=== PATIENT | male | born 1955 | race Caucasian/White ===

== ENCOUNTER → 2016-11-04 | Outpatient (CLI) | payer OTHER ==
[~2016-11-04] MED LIST: GLUCOPHAGE500 MG PO; HYDROCHLOROTHIA25 MG; LEVEMIR100 UNITS/ SUBQ; LIPITOR20 MG PO; NORVASC PO; NOVOLOG100 UNITS/ SUBQ; PRINIVIL20 M1 PO; PROTONIX PO; ST JOSEPH ASPIR81 MG PO
--- NOTE | ~2016-11-04 | MR103 ---
[facility] A Service of [facility] RADIOLOGY TEXT RESULTS PATIENT: THERON FLORES LOCATION: [facility] : 54 UNIT #: [id number] AGE: [address]: Renato Bynum IV, MD SEX: M ORDER DR: [id number] [facility] [address] [place], [place] [address] [id number] O MR#: [id number] Acc #: [id number] NAME: THERON FLORES : 1955 SEX: M STUDY DATE/TIME: 11/04/2016 12:45 UNIT: [facility] ROOM: STUDY DESCRIPTION: MR Knee Wo Contrast Lt Attending Physician: Renato Bynum M.D. Referring Physician: Renato Bynum M.D. Ordering Physician: Renato Bynum M.D. Primary Care Physician: No Primary Care Physician MRI CENTER REPORT This report is preliminary unless electronic signature is present. EXAM MRI left knee without contrast HISTORY A 61-year-old male twisted knee during summer 2015. Complains of anterior medial knee pain getting worse surgery on left knee June 2016, patient underwent partial medial and lateral meniscectomy, and extensive chondroplasty of the patellofemoral joint. FINDINGS Multiplanar multiecho imaging of the left knee utilizing a high field magnet and dedicated protocol. Examination demonstrates diffuse cartilage thinning along the weightbearing aspect medial femoral condyle with areas of moderate to suspected high-grade chondromalacia particularly along the weightbearing aspect of the medial femoral condyle. No subchondral edema identified. There is a dhrc-qs-eqepmybs grade chondromalacia within the medial tibial plateau. The medial meniscus demonstrates significant loss of meniscal volume within the midbody segment and posterior horn medial meniscus compatible with a partial meniscectomy. Degeneration noted within the posterior horn meniscal remnant possibly representing a horizontal cleavage tear within the root remnant but no sizeable tear displaced meniscal fragment. In the lateral compartment, a focal area of chondromalacia is seen in the posterior weightbearing aspect f the lateral femoral condyle measuring up to 7 mm with a focal subarticular osteophyte. Myxoid degeneration noted within the lateral meniscus with truncation of the posterior body segment suggesting a small inner margin tear or sequela of partial meniscectomy. No sizeable tear displaced meniscal fragment. Mild chondromalacia along the median ridge patella with a trace amount of subchondral edema. Trochlear cartilage also demonstrates mild chondromalacia deep trochlear groove. Anterior-posterior cruciate ligaments appear intact. The collateral ligaments and extensor mechanism unremarkable. Moderate knee effusion. Fluid distends the G S bursa with STS. [facility] [facility] A Service of [facility] RADIOLOGY TEXT RESULTS PATIENT: THERON FLORES LOCATION: [facility] : 54 UNIT #: [id number] AGE: [address]: Renato Bynum IV, MD SEX: M ORDER DR: a sizeable popliteal cyst measuring at least 8.5 cm in cephalocaudal dimension. The benign appearing T2 hyperintense lesion seen in the fibular head probably represents an enchondroma. IMPRESSION 1. Multifocal chondromalacia with moderate to potentially a high-grade chondromalacia involving the anterior, weightbearing aspect of the medial femoral condyle. No subchondral edema identified. Additional chondromalacia noted in the lateral femoral condyle to subarticular osteophyte as well as ypiz-ru-cupdmhhr grade chondromalacia along the median ridge of the patella. 2. Morphologic changes within the medial meniscus compatible partial meniscectomy with diffuse degeneration of the midbody segment posterior horn. There may be a horizontal cleavage tear within the meniscal posterior horn meniscal remnant but no displaced meniscal fragment. 3. Small joint effusion and a moderate sized popliteal cyst. Dictated by... Alicja Avilez M.D. THIS IS AN ELECTRONICALLY VERIFIED REPORT Alicja Avilez M.D. at 11/07/2016 7:40 AM Juan Daniel TD: 11/04/2016 20:05 JOB #: [id number] MRI CENTER REPORT COPY
== END | disposition home or self-care (01) ==
LOC: CMRI 12:13
DX: M25.562 Pain in left knee (principal); M25.462 Effusion, left knee; M25.662 Stiffness of left knee, not elsewhere classified; M25.362 Other instability, left knee; M94.262 Chondromalacia, left knee; M25.762 Osteophyte, left knee; M71.22 Synovial cyst of popliteal space [Baker], left knee
CPT/HCPCS: 73721

== ENCOUNTER 2016-11-21 20:15 | Emergency (ER) | payer OTHER ==
--- NOTE | ~2016-11-21 | EKG ---
PATIENT: THERON FLORES UNIT #: [id number] Ventricular Rate: 88 BPM Atrial Rate: 88 BPM P-R Interval: 162 ms QRS Duration: 82 ms Q-T Interval: 368 ms QTC Calculation(Bezet): 445 ms P Jordan: 46 degrees Calculated R Jordan: 115 degrees Calculated T Jordan: 34 degrees Diagnosis Line: Normal sinus rhythm Diagnosis Line: Left posterior fascicular block Diagnosis Line: Abnormal ECG Diagnosis Line: Diagnosis Line: Confirmed by JOSEF SHARMA MD ([id number]) on Diagnosis Line: 11/22/2016 2:26:37 PM INTERPRETING MD: ZACHARY LU
--- NOTE | ~2016-11-21 | CT4 ---
[facility] of [facility] RADIOLOGY TEXT RESULTS PATIENT: THERON FLORES LOCATION: [facility] : 54 UNIT #: [id number] AGE: [address]: Enoc Bolanos MD SEX: M ORDER DR: [id number] [facility] [address] [place], [place] [address] [id number] E MR#: [id number] Acc #: [id number] NAME: THERON FLORES. : 1955 SEX: M STUDY DATE/TIME: 11/21/2016 21:37 UNIT: KACEY ROOM: STUDY DESCRIPTION: CT Abd and Pelv Wo Cont Attending Physician: Enoc Bolanos M.D. Ordering Physician: Ed Doctor [id number] [facility] Primary Care Physician: Primary Care Physician No MEDICAL IMAGING REPORT This report is preliminary unless electronic signature is present EXAM CT of the abdomen and pelvis, 11/21 HISTORY Abdominal pain for one week, worse with eating. Pain currently rates 5/10. TECHNIQUE Axial images were obtained through the abdomen and pelvis following oral contrast administration. Multiplanar reformats were obtained. This CT exam was performed with one or more of the following radiation dose reduction techniques: automatic exposure control, adjustment of mA and/or kV according to patient size, and iterative reconstruction. COMPARISON None FINDINGS ABDOMEN: There is some mild dependent atelectasis in the lung bases. The gallbladder is surgically absent. There are small bilateral non-obstructing renal stones. No ureteral stones are seen and there is no hydronephrosis. The unenhanced solid organs are otherwise normal. The GI tract is normal. There is no free fluid. PELVIS: There are no lower ureteral stones. The bladder is normal. The appendix is normal, as the remainder of the GI tract. There is degenerative disease in the spine. IMPRESSION 1. No acute findings in the abdomen or pelvis. 2. Normal GI tract, including the appendix. [facility] Service of [facility] RADIOLOGY TEXT RESULTS PATIENT: THERON FLORES LOCATION: [facility] : 54 UNIT #: [id number] AGE: [address]: Enoc Bolanos MD SEX: M ORDER DR: 3. Small bilateral non-obstructing renal stones. No ureteral stones are seen and there is no hydronephrosis. 4. Cholecystectomy. Dictated by... Silvino Goldberg Jr., M.D. THIS IS AN ELECTRONICALLY VERIFIED REPORT Silvino Goldberg Jr., M.D. at 11/22/2016 4:23 PM NEDRA/francia TD: 11/22/2016 11:20 JOB #: [id number] MEDICAL IMAGING REPORT Page 1 of 1 COPY
[2016-11-21 17:16] LABS: URINE SOURCE CLEAN CATCH
[2016-11-21 17:22] LABS: URINE APPEARANCE CLEAR; URINE BILIRUBIN NEG (NEG); URINE BLOOD NEG (NEG); URINE COLOR DK YELLOW; URINE GLUCOSE 250 MG/DL (NEG); URINE KETONE NEG (NEG); URINE LEUKOCYTE ESTERASE NEG (NEG); URINE NITRATE NEG (NEG); URINE PROTEIN TRACE (NEG); URINE SPECIFIC GRAVITY 1.029 (1.003-1.035); URINE UROBILINOGEN 0.2 MG/DL (NEG)
[2016-11-21 17:26] LABS: CULTURE INDICATED? NO
[2016-11-21 17:28] LABS: BASOPHIL% 0.5 % (0-2.5); DIFF IND NO; EOSINOPHIL# 0.1 X10e3 (0-0.7); EOSINOPHIL% 1.1 % (0.0-7.0); HEMATOCRIT 50.5 % (38.0-50.0); HEMOGLOBIN 17.1 gm/dL (13.0-16.0); LYMPHOCYTE# 1.8 X10e3 (1.0-3.5); LYMPHOCYTE% 18.8 % (17.0-45.0); MEAN CELL VOLUME 82.4 FL (83-96); MEAN CORPUSCULAR HEMOGLOBIN 27.8 PG (28-34); MEAN CORPUSCULAR HGB CONC 33.8 g/dL (30-36); MEAN PLATELET VOLUME 10.4 FL (6.5-11.5); MONOCYTE% 10.8 % (3.0-12.0); NEUTROPHIL# 6.7 X10e3 (1.5-7.1); NEUTROPHIL% 68.8 % (40-75); PLATELET COUNT 210 X10e3 (140-420); RED BLOOD COUNT 6.13 X10e (3.90-5.60); RED CELL DISTRIBUTION WIDTH 13.5 % (11.0-15.5); WHITE BLOOD COUNT 9.7 X10e3 (4.0-10.5)
[2016-11-21 17:49] LABS: ALBUMIN SERUM 4.4 g/dL (3.5-5.0); BILIRUBIN, DIRECT 0.2 mg/dL (0.0-0.2); BILIRUBIN,TOTAL 1.2 mg/dL (0.2-2.0); BUN/CREATININE RATIO 22.66; CALCIUM SERUM 9.4 mg/dL (8.4-10.2); CREATININE SERUM 1.5 mg/dL (0.6-1.4); GLOM FILT RATE Estimated 50.4 mL/min (>60); POTASSIUM 4.3 mmol/L (3.5-5.1); PROTEIN TOTAL SERUM 7.6 g/dL (6.0-8.3)
[2016-11-21 21:21] LABS: POC - CKMB 3.8 ng/mL (0.0-7.9); POC - TROPONIN <0.05 ng/mL (<=0.05)
[2016-11-21 22:49] LABS: POC - CKMB 3.6 ng/mL (0.0-7.9); POC - TROPONIN <0.05 ng/mL (<=0.05)
[2016-12-28] MEDS ORDERED: NORVASC PO (09:32)
[2016-12-28] MEDS ORDERED: HYDROCHLOROTHIA25 MG (09:32)
[2016-12-28] MEDS ORDERED: PRINIVIL20 M1 PO (09:32)
[2016-12-28] MEDS ORDERED: PROTONIX PO (09:33)
[2016-12-28] MEDS ORDERED: ST JOSEPH ASPIR81 MG PO (09:33)
== END 2016-11-21 23:23 | disposition home or self-care (01) ==
LOC: CED 20:15
PROVIDERS: Emergency Medicine
DX: N28.9 Disorder of kidney and ureter, unspecified (principal); R13.10 Dysphagia, unspecified; I10 Essential (primary) hypertension; Z90.49 Acquired absence of other specified parts of digestive tract
CPT/HCPCS: 36415; 74176; 80048; 80076; 81003; 82553; 83690; 84484; 85025; 93005; 96374; 96375; 99284; C9113; J2270; J2405

== ENCOUNTER → 2016-12-28 | Day surgery (SDC) | payer OTHER ==
--- NOTE | ~2016-12-28 | OR ---
Unit #: [id number] #: [id number] Patient: THERON FLORES [id number] [address] [address] [id number] O MR#: [id number] NAME: THERON FLORES. ROOM: Date of Procedure: 12/28/2016 Admission Date: 12/28/2016 Surgeon: Antoine Jung M.D. : 1955 Attending Physician: Antoine Jung M.D. Referring Physician: Antoine Jung M.D. Primary Care Physician: Lelo Ayala M.D. OPERATIVE REPORT PROCEDURE PERFORMED Esophagogastroduodenoscopy with biopsies. INDICATIONS FOR PROCEDURE The patient with significant dysphagia, epigastric pain, black stools. MEDICATIONS Monitored anesthesia. POSTOPERATIVE FINDINGS 1. Normal esophagus. 2. Chronic appearing diffuse gastritis. 3. Severe duodenitis with multiple superficial ulcerations in the descending duodenum. Biopsies taken. PLAN PPI therapy for now. Avoid NSAIDs. Follow up on the pathology report. DESCRIPTION OF PROCEDURE The patient was explained of the procedure, risks, and benefits along with risks and benefits of anesthesia. He was brought to the endoscopy room. Propofol anesthesia was given. Bite block was placed. The scope was passed down the mouth and esophagus, stomach, duodenum, and distal duodenum. Findings as described. Biopsies were taken. Gently, I pulled the scope out of the patient's mouth. He tolerated it well. Dictated by... Augustin Contreras/ambrosio TD: 12/28/2016 23:21 JOB #: [id number] CC: Nalini Vieira M.D. Unit #: [id number] #: [id number] Patient: THERON FLORES OPERATIVE REPORT Page 1 of 1 X Antoine Jung MD X PROCEDURE OPERATIVE NOTE
== END | disposition home or self-care (01) ==
LOC: COPS 08:30
PROVIDERS: Internal Medicine
PROC: 0DB98ZX Excision of Duodenum, Via Natural or Artificial Opening Endoscopic, Diagnostic (ICD-10-PCS; principal; 2016-12-28 13:00)
PROC: 0DB68ZX Excision of Stomach, Via Natural or Artificial Opening Endoscopic, Diagnostic (ICD-10-PCS; 2016-12-28 13:00)
DX: K29.50 Unspecified chronic gastritis without bleeding (principal); K29.80 Duodenitis without bleeding
CPT/HCPCS: 88305; 88312

== ENCOUNTER 2017-01-13 09:54 | Inpatient (IN) | payer OTHER ==
--- NOTE | ~2017-01-13 | HP ---
Unit #: [id number] #: [id number] Patient: THERON FLORES [id number] [facility]. [place], [place] [address] [id number] I MR#: [id number] NAME: THERON FLORES. ROOM: 36338 Age: 61 Sex: M Admission Date: 01/13/2017 : 1955 Attending Physician: Inna Gallegos M.D. Primary Care Physician: Lelo Ayala M.D. HISTORY AND PHYSICAL CHIEF COMPLAINT Weakness. HISTORY OF PRESENT ILLNESS The patient is a 61-year-old male with a past medical history of hypertension, who presented to the emergency department for evaluation of the above. The patient states he has had a two to three month history of abdominal pain. He states the abdominal pain is in his mid abdomen. He describes it as "sharp." It is intermittent in nature. There are no exacerbating or alleviating factors. He has had associated nausea. Prior to yesterday, bowel movements were normal. He has been seeing Dr. Jung regarding the abdominal pain. He underwent EGD on 12/28/2016 that showed diffuse gastritis, as well as severe duodenitis with multiple superficial ulcerations in the descending duodenum. Yesterday he did the prep for colonoscopy today. He has been increasingly generally weak for the past two to three weeks. He has felt intermittently lightheaded. He also reports dry mouth and frequent urination for the past couple of weeks. He states that he has lost 28 pounds. Upon arriving in the emergency department, the patient's pulse and blood pressure were 98 and 149/100 respectively. Laboratory notable for glucose of 990, sodium 120, but corrects to 134, potassium is 5.2, CO2 26, BUN and creatinine 42 and 2 respectively. Arterial blood gas shows a pH of 7.414. He is being admitted to [facility] for evaluation and further treatment. PAST MEDICAL HISTORY 1. Hypertension. 2. "Borderline diabetes." PAST SURGICAL HISTORY 1. Cholecystectomy. 2. Arthroscopic surgery of the knee. 3. EGD 12/28/2016 showed severe duodenitis with multiple superficial ulcerations, as well as diffuse gastritis. SOCIAL HISTORY The patient lives with his significant other. There is no tobacco, alcohol or illicit drug use. He is currently unemployed but works in [employer]. FAMILY HISTORY Unit #: [id number] #: [id number] Patient: THERON FLORES Notable for his mother having thyroid issues. He is not are of any family history of diabetes. HOME MEDICATIONS Lisinopril, hydrochlorothiazide, amlodipine. Home medications will be need to be reviewed and verified. REVIEW OF SYSTEMS A complete review of systems is negative except as indicated in the HPI. PHYSICAL EXAMINATION VITAL SIGNS: Temperature 98.2, pulse 98, respirations 18, blood pressure 149/100, oxygen saturation is 95% on room air. GENERAL: The patient is a very pleasant male who is awake and alert in no acute distress. HEENT: Head is atraumatic. Mucous membranes are dry. NECK: Supple. Trachea is midline. CARDIOVASCULAR: Regular rate and rhythm. LUNGS: Clear to auscultation bilaterally with no increased work of breathing. ABDOMEN: Soft. He is mildly tender to palpation in the epigastric area. Bowel sounds are present in all four quadrant. EXTREMITIES: Nontender with no pedal edema. NEUROLOGIC: The patient is awake and alert. He follows commands. PSYCH: Mood and affect are normal. The patient is cooperative. SKIN: Skin of examined areas is warm and dry. DIAGNOSTIC STUDIES LABORATORY STUDIES: Arterial blood gas shows a pH 7.414, pCO2 49.9, pO2 18, this was actually a venous blood gas. Complete blood count notable for hemoglobin and hematocrit of 16.4, and 49.5 respectively. Comprehensive metabolic panel notable for sodium of 120 that corrects to 134 with glucose of 990 is accounted for. Potassium is 5.2, chloride 80, CO2 26, BUN and creatinine 42 and 2 respectively, alk phos 102, beta-hydroxybutyrate is 2.02. ASSESSMENT The patient is a 61-year-old male with: 1. Uncontrolled diabetes: The patient received 2 L of normal saline in the emergency department. Insulin drip has been ordered. 2. Pseudohyponatremia: Sodium corrects to 134. 3. Acute kidney injury: The patient's creatinine was 1.5 on 11/21/2016, it is 2 today. 4. Hypertension. 5. Abdominal pain followed by Dr. Jung: The patient was scheduled for colonoscopy today. PLAN 1. Admit to ICU. 2. NPO except ice chips. 3. NonDKA insulin drip per protocol, to start now. 4. Normal saline at 500 mL per hour x2 hours, then 250 mL per hour until blood sugar less than or equal to 250. 5. Consult Dr. Valenzuela regarding new diabetes. 6. Consult Dr. Jung regarding abdominal pain. 7. Check magnesium level. 8. Check hemoglobin A1c and TSH. 9. Urinalysis with culture and sensitivity. Unit #: [id number] #: [id number] Patient: THERON FLORES 10. Urine tox screen. 11. Amylase and lipase. 12. Protonix for GI prophylaxis since the patient will be in the ICU. 13. SCDs for DVT prophylaxis. 14. PT and OT to evaluate and treat. 15. Fall precautions. 16. Repeat labs in the morning. 17. Additional workup and consultants based on above. 31 minutes critical care time spent in the care of this patient (12:00 to 12:31 p.m.). Dictated by Augustin Montanez/john TD: 01/13/2017 13:42 JOB #: [id number] HISTORY AND PHYSICAL Page 1 of 1 X Inna Gallegos MD X HISTORY AND PHYSICAL
--- NOTE | ~2017-01-13 | CO ---
Unit #: [id number] #: [id number] Patient: THERON FLORES [id number] [facility]. [place], [place] [address] [id number] MR#: [id number] NAME: THERON FLORES. ROOM: 573 Age: 61 Sex: M Admission Date: 01/13/2017 : 1955 Attending Physician: Jackie Mejia M.D. Primary Care Physician: Lelo Ayala M.D. Consultation Date: 01/13/2017 CONSULTATION REPORT JOB NOTE: FIRST NAME UNDECIPHERABLE. REASON FOR CONSULTATION Hyperglycemia. HISTORY OF PRESENT ILLNESS This is a 61-year-old male with a history of hypertension, who has presented to the emergency room for not feeling well. Over the last 2 to 3 weeks, he has been having increasing frequency of urination and increased thirst and weight loss of 28 pounds. He has been drinking lot of juices and soft drinks. Upon arriving in the emergency department, the patient was found to have severe hyperglycemia with a blood glucose of 990 with sodium 120, potassium 5.2, and creatinine of 2. The patient was started on IV hydration and IV fluids and transferred to the unit bed. The patient is being seen in the ICU. MEDICAL HISTORY Hypertension, history of severe duodenitis and diffuse gastritis. PAST SURGICAL HISTORY Cholecystectomy. SOCIAL HISTORY He lives with his significant other. No tobacco or illicit drugs. Unemployed. FAMILY HISTORY Noncontributory. HOME MEDICATIONS Include amlodipine, hydrochlorothiazide, lisinopril. REVIEW OF SYSTEMS 12-point review of systems were completed, please see HPI. Otherwise unremarkable. PHYSICAL EXAMINATION GENERAL: He is awake, alert, and oriented to time, place, and person. VITAL SIGNS: Stable. Temperature 98.2, pulse is 102, respirations 18, blood pressure 140/86 and weight is 104 kg. HEENT: EOMI. Pupils are equally reactive to light. NECK: Supple. No thyromegaly noted. CHEST: Good air entry. CVS: Regular rhythm. No murmurs. Unit #: [id number] #: [id number] Patient: THERON FLORES ABDOMEN: Soft and nontender. Bowel sounds positive. EXTREMITIES: No edema. Ulcers noted. NEUROLOGIC: Nonfocal. DIAGNOSTIC STUDIES LABORATORY RESULTS: Reviewed. Glucose 990, BUN is 42, creatinine is 2.0. Sodium 120, potassium 5.2, chloride is 80. TSH is normal. ASSESSMENT 1. Hyperosmolar hyperglycemia with some ketosis. 2. Hyponatremia secondary to hyperglycemia. 3. History of hypertension. 4. Acute renal failure secondary to the dehydration. PLAN Continue IV hydration with normal saline. Continue insulin drip and Accu-Cheks every hourly. Monitor electrolytes per protocol and replace as needed. I will start the mag and potassium protocol. Monitor phosphorus. Monitor renal function closely. Thanks again for consultation. Dictated by... Kenneth Valenzuela M.D. SPEEDY/ambrosio TD: 01/14/2017 02:44 JOB #: [id number] CONSULTATION REPORT Page 1 of 1 X Kenneth Valenzuela MD X CONSULTATION REPORT
--- NOTE | ~2017-01-13 | DS ---
Unit #: [id number] #: [id number] Patient: THERON ABRAHAM [id number] [address] [place], [place] [address] [id number] I MR#: [id number] NAME: THERON ABRAHAM. ROOM: 573 Age: 61 Sex: M Admission Date: 01/13/2017 : 1955 Discharge Date: 01/16/2017 Attending Physician: Jackie Mejia M.D. Primary Care Physician: Lelo Ayala M.D. DISCHARGE SUMMARY PRINCIPAL DIAGNOSES 1. Hyperosmolar nonketotic state. 2. Newly diagnosed diabetes mellitus type 2 uncontrolled with hemoglobin A1c of 16.6. 3. Acute kidney injury, prerenal. Discharge creatinine 1.0. 4. Hypokalemia. 5. Hyperkalemia, resolved. 6. Hypertension. 7. Hyperlipidemia. 8. Gastroesophageal reflux disease. 9. Mild protein malnutrition. CONSULTANTS Dr. Valenzuela, endocrinology and Dr. Jung, gastroenterology. PROCEDURES Colonoscopy on 01/15/2017 with findings of internal hemorrhoids. CLINICAL HISTORY Mr. Abraham is a nice 61-year-old male how presents to the emergency department with complaints of weakness. Patient had been complaining about abdominal pain over the past several months. Blood in the emergency department revealed a glucose of 990, mild hyponatremia, hyperkalemia, and a creatinine of 2. He was subsequently admitted. HOSPITAL COURSE The patient was admitted to the ICU and placed on insulin drip. A nonDKA protocol were given as significant hyperglycemia. Dr. Valenzuela was subsequently consulted. With appropriate IV fluids and insulin the patient's blood sugars subsequently decreased and he was transitioned to subcutaneous insulin and transferred to the floor. Sugars now are significantly improved this morning. Fasting blood sugar was approximately 110. Postprandial sugars are still elevated at the 300s. However, we are going to continue on insulin as outlined below, with close management per Dr. Valenzuela as an outpatient. I will note, patient's hemoglobin A1c was significantly elevated at 16.6. I have discussed the pathophysiology of diabetes with him, in addition to dietary changes and dietary has also seen him on two separate occasions regarding diabetic teaching. He will also be taught how to administer insulin prior to discharge. The patient did have several electrolyte abnormalities secondary to his significant hyperglycemia but these have been corrected. Unit #: [id number] #: [id number] Patient: THERON ABRAHAM In regards to patient's acute kidney injury, this has resolved with IV hydration. Urinalysis here is not currently demonstrating any protein. He would need microalbumin done as an outpatient. Patient does have a history of hypertension but being maintained on lisinopril only during hospitalization, blood pressures have remained stable at 110/70. I am going to hold patient's hydrochlorothiazide and amlodipine for now. Continue on lisinopril and again this can be followed up as an outpatient. Patient will be discharged home later today with diabetic supplies. Please note: Patient did have complaints of abdominal pain for which Dr. Jung was consulted. Colonoscopy was done and this was negative. Patient's abdominal pain is resolved. His sugars have improved and I suspect this is related to his sugars, in addition to his underlying gastritis and duodenitis that was diagnosed as an outpatient. DISCHARGE CONDITION Stable. DISCHARGE STATUS Discharge to home. DISCHARGE MEDICATIONS 1. Metformin XR 500 mg p.o. b.i.d. 2. Lipitor 20 mg at bedtime with one refill. 3. Prinivil 20 mg each day with no prescription given. 4. Levemir 28 units subcutaneously at bedtime with one refill given. 5. NovoLog 10 units subcu t.i.d. with meals with one refill given. 6. Aspirin 81 mg daily. 7. Protonix 40 mg daily. 8. Lancets 1 four times daily with one refill. 9. Test strips 1 four times daily with one refill. 10. BD pen needles given with one refill and glucometer given. DISCHARGE INSTRUCTIONS I have instructed patient to check sugar at least twice daily, once fasting, and one meal two hours postprandial to monitor insulin dosing and to provide a list of these sugars at followup appointment. Would otherwise follow a heart healthy CCD diet. He can increase activity as tolerated. FOLLOWUP Patient will followup with his primary care provider and/or PCP of choice within the next one month. He should followup with Dr. Valenzuela in two to three weeks and in case this is unable to be done, I will get him an appointment in transition clinic in three weeks as well. Time spent on discharge 53 minutes. Dictated by... Katy Lester M.D. FITZ/john Unit #: [id number] #: [id number] Patient: THERON ABRAHAM Bentley TD: 01/17/2017 07:44 JOB #: [id number] DISCHARGE SUMMARY Page 1 of 1 X Katy Lester MD X DISCHARGE SUMMARY
--- NOTE | ~2017-01-13 | CO ---
Unit #: [id number] #: [id number] Patient: THERON FLORES [id number] [address] [place], [place] [address] [id number] MR#: [id number] NAME: THERON FLORES. ROOM: 573 Age: 61 Sex: M Admission Date: 01/13/2017 : 1955 Attending Physician: Jackie Mejia M.D. Primary Care Physician: Lelo Ayala M.D. CONSULTATION REPORT REASON FOR CONSULTATION Abdominal pain. HISTORY OF PRESENTING ILLNESS The patient reports 2 to 3-month history of abdominal pain. He was scheduled for a colonoscopy with Dr. Jung yesterday, where he completed a prep and then began to feel increasingly weak and subsequently presented to the emergency department, where he was found to have a glucose of 990 and was subsequently admitted and started on an insulin drip. He does report a weight loss of about 28 pounds. He is status post an EGD on 12/28/2016. PAST MEDICAL HISTORY Hypertension; questionably diabetes; cholecystectomy; arthroscopic surgery of the knee; EGD on 12/28/2016 showing severe duodenitis; multiple superficial ulcerations as well as diffuse gastritis. SOCIAL HISTORY The patient lives at home. Denies tobacco, alcohol, or illicit drugs. FAMILY HISTORY Notable for mother with thyroid issues. HOME MEDICATIONS Lisinopril, hydrochlorothiazide, amlodipine, aspirin, Protonix. ALLERGIES None known. REVIEW OF SYSTEMS A complete 10-point review of systems is completed and negative except as mentioned in the HPI. PHYSICAL EXAMINATION GENERAL: The patient is a pleasant 61-year-old male, currently in no acute distress. VITAL SIGNS: Temperature is 97.8, pulse is 70, respirations 14, blood pressure is 136/86. HEENT: PERRLA. NECK: Supple. CARDIAC: S1, S2. LUNGS: Clear to auscultation. ABDOMEN: Soft, rounded. Mild generalized tenderness. Positive bowel sounds. Unit #: [id number] #: [id number] Patient: THERON FLORES NEUROLOGIC: The patient is alert, awake, and oriented x3. DIAGNOSTIC STUDIES LABORATORY RESULTS: Glucose this morning was 162; BUN and creatinine are 29 and 1.4 respectively, which have both improved. Potassium is 2.7 today. White count is 8.5, hemoglobin is 15.2, hematocrit is 44.1, and platelets are 193. ASSESSMENT AND PLAN 1. Abdominal pain, generalized. We will plan colonoscopy as previously scheduled for tomorrow with supply additional prep this evening. Continue clears. N.p.o. after midnight. The patient will likely be okay for home after colonoscopy. 2. Uncontrolled diabetes. Workup per Dr. Valenzuela. Thank you for this interesting consult. We will continue to follow along. Dictated by... Katy Park A.P.R.N. for Augustin Contreras/ambrosio TD: 01/14/2017 17:17 JOB #: [id number] CONSULTATION REPORT Page 1 of 1 X X CONSULTATION REPORT
--- NOTE | ~2017-01-13 | FU ---
[facility] Nutrition Therapy DATE: 01/16/17 Patient: THERON FLORES Physician: FRANCIA Address: [address] [facility] Room/Bed: [address] [place] [address], Zip: [place] [id number] Admit Date: 01/13/17 Date of : 53 Height: 6 1 Weight: 222 100.8 NUTRITION MONITORING/FOLLOW-UP: Reason: Consult for DM diet education (second consult received) Assessment: RD was consulted again to see this pt regarding DM diet education, as the pt's girlfriend had questions and she was not present during the previous diet education (provided on 01/14). RD spoke with the pt and his girlfriend at bedside. Pt did not seem to have retained information previously discussed, and provided extensive HH/CC diet education once again. Pt and his girlfriend both asked questions and expressed motivation to make changes; however, they both seemed overwhelmed. RD provided printed materials and recommended that the pt see an outpatient RD for follow up and more individualized meal planning. RD suggested the [facility] outpatient RD, and provided physician referral form in chart. RD encouraged the pt and his girlfriend to contact RD if any additional questions arise while he is still at [facility]. Pt expected to be discharged today per RN report. Recommendations: 1. Pt would benefit from seeing an outpatient RD for more comprehensive consistent carbohydrate education and meal planning. RD placed physician referral form in the chart. Please contact RD for any further nutritional needs. Respectfully, BECKA CAHN RD, LD [facility] cc: client file
--- NOTE | ~2017-01-13 | A ---
[facility] Nutrition Therapy DATE: 01/14/17 Patient: THERON FLORES Physician: FRANCIA Address: [address] [facility] Room/Bed: [address] [place] [address], Zip: [place] [address] Admit Date: 01/13/17 Date of : 53 Height: 6 1 Weight: 229 104 NUTRITIONAL ASSESSMENT: REASON: Consult for DM diet education Assessment: Chart reviewed, events noted. RD spoke with the pt at bedside. Pt reports that he has been trying to eat healthier and read nutrition labels. RD provided extensive consistent carbohydrate/ heart healthy diet education. Pt voiced understanding and asked several questions. Pt seems motivated to make dietary changes. RD also suggested that the pt see an outpatient RD for follow up. Printed materials provided, and pt encouraged to contact RD with any questions. Recommendations: 1. Pt to follow a heart healthy/ consistent carbohydrate diet as instructed by RD. 2. Pt would benefit from seeing an outpatient RD for follow up and accountability. Please consult RD for any further nutritional needs. Respectfully, BECKA CHAN RD, LD Food and Nutritional Services [facility] cc: client file
--- NOTE | ~2017-01-13 | EKG ---
PATIENT: THERON FLORES UNIT #: [id number] Ventricular Rate: 97 BPM Atrial Rate: 97 BPM P-R Interval: 178 ms QRS Duration: 84 ms Q-T Interval: 370 ms QTC Calculation(Bezet): 469 ms P Bronson: 49 degrees Calculated R Bronson: 88 degrees Calculated T Bronson: 46 degrees Diagnosis Line: Normal sinus rhythm Diagnosis Line: Normal ECG Diagnosis Line: When compared with ECG of 21-NOV-2016 20:28, Diagnosis Line: No significant change was found Diagnosis Line: Confirmed by SMITH HERRERA MD ([id number]) on 01/13/2017 Diagnosis Line: 8:11:02 PM INTERPRETING MD: SHARON LU
[~2017-01-13 09:54] MED LIST changes: -GLUCOPHAGE500 MG PO; -LEVEMIR100 UNITS/ SUBQ; -LIPITOR20 MG PO; -NOVOLOG100 UNITS/ SUBQ
[2017-01-13 10:51] LABS: ARTERIAL BLD GAS O2 SATURATION 32.5 % (90.0-100.0); ARTERIAL BLOOD GAS CARBOXY HB 1.3 %sat (0.0-9.0); ARTERIAL BLOOD GAS HCO3 31.9 mmol/L; ARTERIAL BLOOD GAS MET HB 0.6 %sat (0.0-2.0); ARTERIAL BLOOD GAS PCO2 49.9 mmHg (35.0-45.0); ARTERIAL BLOOD GAS pH 7.414 (7.350-7.450)
[2017-01-13 10:52] LABS: ARTERIAL BLOOD GAS DELIVERY ROOM AIR; ARTERIAL DRAW? NO
[2017-01-13 10:55] LABS: BASOPHIL% 0.6 % (0-2.5); EOSINOPHIL% 0.1 % (0.0-7.0); HEMATOCRIT 49.5 % (38.0-50.0); HEMOGLOBIN 16.4 gm/dL (13.0-16.0); LYMPHOCYTE% 12.9 % (17.0-45.0); MEAN CELL VOLUME 85.4 FL (83-96); MEAN CORPUSCULAR HEMOGLOBIN 28.2 PG (28-34); MEAN CORPUSCULAR HGB CONC 33.1 g/dL (30-36); MEAN PLATELET VOLUME 11.3 FL (6.5-11.5); MONOCYTE# 0.6 X10e3 (0-1.0); MONOCYTE% 8.5 % (3.0-12.0); NEUTROPHIL# 5.8 X10e3 (1.5-7.1); NEUTROPHIL% 77.9 % (40-75); PLATELET COUNT 193 X10e3 (140-420); RED CELL DISTRIBUTION WIDTH 13.3 % (11.0-15.5); WHITE BLOOD COUNT 7.5 X10e3 (4.0-10.5)
[2017-01-13 10:57] LABS: DIFF IND NO
[2017-01-13 11:48] LABS: BETA HYDROXYBUTYRATE 2.02 MMOL/L (0.02-0.27); BILIRUBIN, DIRECT 0.2 mg/dL (0.0-0.2); BILIRUBIN,INDIRECT 1.3 mg/dL (0.0-0.9); BILIRUBIN,TOTAL 1.5 mg/dL (0.2-2.0); CALCIUM SERUM 8.9 mg/dL (8.4-10.2); GLOM FILT RATE Estimated 34.7 mL/min (>60); POTASSIUM 5.2 mmol/L (3.5-5.1); PROTEIN TOTAL SERUM 6.7 g/dL (6.0-8.3)
[2017-01-13 12:20] LABS: URINE SOURCE CLEAN CATCH
[2017-01-13 12:55] LABS: URINE APPEARANCE CLEAR; URINE BILIRUBIN NEG (NEG); URINE BLOOD NEG (NEG); URINE COLOR YELLOW; URINE GLUCOSE >1000 MG/DL (NEG); URINE KETONE 1+ (NEG); URINE LEUKOCYTE ESTERASE NEG (NEG); URINE NITRATE NEG (NEG); URINE PROTEIN NEG (NEG); URINE UROBILINOGEN 0.2 MG/DL (NEG)
[2017-01-13 13:04] LABS: CULTURE INDICATED? NO
[2017-01-13 13:50] LABS: AMPHETAMINE NEG (NEG); BARBITURATES NEG (NEG); BENZODIAZEPINES NEG (NEG); COCAINE NEG (NEG); MARIJUANA NEG (NEG); OPIATES NEG (NEG); TRICYCLIC ANTIDEPRESSANTS NEG (NEG); U METHADONE NEG (NEG)
[2017-01-13 13:51] LABS: MAGNESIUM 2.6 mg/dL (1.6-3.0)
[2017-01-14 04:55] LABS: BASOPHIL# 0.1 X10e3 (0-0.3); BASOPHIL% 0.7 % (0-2.5); DIFF IND NO; EOSINOPHIL# 0.1 X10e3 (0-0.7); EOSINOPHIL% 1.6 % (0.0-7.0); HEMATOCRIT 44.1 % (38.0-50.0); HEMOGLOBIN 15.2 gm/dL (13.0-16.0); LYMPHOCYTE# 1.9 X10e3 (1.0-3.5); LYMPHOCYTE% 22.1 % (17.0-45.0); MEAN CELL VOLUME 81.9 FL (83-96); MEAN CORPUSCULAR HEMOGLOBIN 28.2 PG (28-34); MEAN CORPUSCULAR HGB CONC 34.4 g/dL (30-36); MEAN PLATELET VOLUME 10.2 FL (6.5-11.5); MONOCYTE# 0.7 X10e3 (0-1.0); MONOCYTE% 8.4 % (3.0-12.0); NEUTROPHIL# 5.7 X10e3 (1.5-7.1); NEUTROPHIL% 67.2 % (40-75); PLATELET COUNT 193 X10e3 (140-420); RED BLOOD COUNT 5.38 X10e (3.90-5.60); RED CELL DISTRIBUTION WIDTH 13.2 % (11.0-15.5); WHITE BLOOD COUNT 8.5 X10e3 (4.0-10.5)
[2017-01-14 05:41] LABS: ALBUMIN SERUM 3.3 g/dL (3.5-5.0); BILIRUBIN,TOTAL 0.9 mg/dL (0.2-2.0); BUN/CREATININE RATIO 20.71; CALCIUM SERUM 8.4 mg/dL (8.4-10.2); CREATININE SERUM 1.4 mg/dL (0.6-1.4); GLOM FILT RATE Estimated 53.5 mL/min (>60); MAGNESIUM 2.1 mg/dL (1.6-3.0); PROTEIN TOTAL SERUM 5.8 g/dL (6.0-8.3)
[2017-01-14 05:46] LABS: POTASSIUM 2.7 mmol/L (3.5-5.1)
[2017-01-15 06:46] LABS: CALCIUM SERUM 8.3 mg/dL (8.4-10.2); CREATININE SERUM 1.2 mg/dL (0.6-1.4); GLOM FILT RATE Estimated 64.4 mL/min (>60)
[2017-01-16 05:21] LABS: HEMATOCRIT 39.8 % (38.0-50.0); HEMOGLOBIN 13.6 gm/dL (13.0-16.0); MEAN CORPUSCULAR HGB CONC 34.1 g/dL (30-36); MEAN PLATELET VOLUME 10.3 FL (6.5-11.5); RED BLOOD COUNT 4.85 X10e (3.90-5.60); RED CELL DISTRIBUTION WIDTH 13.4 % (11.0-15.5); WHITE BLOOD COUNT 5.8 X10e3 (4.0-10.5)
[2017-01-16 06:09] LABS: CALCIUM SERUM 8.3 mg/dL (8.4-10.2); GLOM FILT RATE Estimated 80.3 mL/min (>60); POTASSIUM 3.3 mmol/L (3.5-5.1)
[2017-01-16] MEDS ORDERED: LEVEMIR100 UNITS/ SUBQ (10:47)
[2017-01-16] MEDS ORDERED: LIPITOR20 MG PO (10:48)
[2017-01-16] MEDS ORDERED: NOVOLOG100 UNITS/ SUBQ (10:48)
[2017-01-16] MEDS ORDERED: GLUCOPHAGE500 MG PO (10:49)
== END 2017-01-16 14:19 | disposition home or self-care (01) | DRG 682 ==
LOC: CED 09:54 → CEDOF 12:30 → CED 12:39 → CEDOF 15:15 → CICCU2 15:15 → C5C 01-14 16:28
PROVIDERS: Emergency Medicine; Family Medicine; Internal Medicine
PROC: 0DJD8ZZ Inspection of Lower Intestinal Tract, Via Natural or Artificial Opening Endoscopic (ICD-10-PCS; principal; 2017-01-15 09:41)
DX: N17.9 Acute kidney failure, unspecified (principal); E11.00 Type 2 diabetes mellitus with hyperosmolarity without nonketotic hyperglycemic-hyperosmolar coma (NKHHC); E87.1 Hypo-osmolality and hyponatremia; E44.1 Mild protein-calorie malnutrition; E11.65 Type 2 diabetes mellitus with hyperglycemia; R53.1 Weakness; I10 Essential (primary) hypertension; R10.9 Unspecified abdominal pain; Z90.49 Acquired absence of other specified parts of digestive tract; Z79.82 Long term (current) use of aspirin; E86.0 Dehydration; Z79.84 Long term (current) use of oral hypoglycemic drugs; E87.6 Hypokalemia; E87.5 Hyperkalemia; K21.9 Gastro-esophageal reflux disease without esophagitis; K64.8 Other hemorrhoids; K29.70 Gastritis, unspecified, without bleeding; K29.80 Duodenitis without bleeding
CPT/HCPCS: 80048; 80053; 80061; 80076; 80307; 81003; 82010; 82150; 82803; 82947; 83036; 83690; 83735; 84100; 84132; 84443; 85025; 85027; 93005; 99285; C9113; J1815; J2405

== ENCOUNTER → 2017-01-13 | Day surgery (SDC) | payer OTHER | END | disposition home or self-care (01) | LOC: COPS 08:58 | DX: Z12.11 Encounter for screening for malignant neoplasm of colon (principal); K21.9 Gastro-esophageal reflux disease without esophagitis; E11.65 Type 2 diabetes mellitus with hyperglycemia; E87.1 Hypo-osmolality and hyponatremia; N17.9 Acute kidney failure, unspecified; I10 Essential (primary) hypertension; Z53.9 Procedure and treatment not carried out, unspecified reason | CPT/HCPCS: 82947 ==